=== PATIENT | male | born 2000 ===

== ENCOUNTER 2024-10-25 12:09 | Emergency (ER) | payer OTHER ==
[~2024-10-25] VITALS: Ht 170.2 cm; Wt 68.0 kg
[~2024-10-25 12:09] MED LIST: AMOX25SU PO
== END 2024-10-25 12:45 | disposition home or self-care (01) ==
LOC: ER 12:09
DX: M24.412 Recurrent dislocation, left shoulder (principal)
CPT/HCPCS: 23650; 73030; 99284-25

== ENCOUNTER 2024-11-06 06:08 | Day surgery (SDC) | payer MEDICARE ==
[~2024-11-06] VITALS: Ht 170.2 cm; Wt 62.2 kg
[2024-11-06] MEDS ORDERED: Lactated Ringer's 1,000 ML IV ONE ×3 (06:14→09:47)
[2024-11-06] MEDS ORDERED: CeFAZolin Sodium 2,000 MG VIAL ONE (06:14)
[2024-11-06] MEDS ORDERED: Tranexamic Acid 100 ML IV ONE (06:16)
[2024-11-06] MEDS ORDERED: FISH OIL 1,0001 EA10 (06:32)
[2024-11-06] MEDS ORDERED: Midazolam HCL 1 MG/ML 5MLVIAL ONE (07:02)
[2024-11-06] MEDS ORDERED: Bupivacaine 0.5% W/EPI 1:200000 SDV 30 ML Vial ONE (07:02)
[2024-11-06] MEDS ORDERED: propofoL 20 ML IV ONE ×2 (07:03→10:08)
[2024-11-06] MEDS ORDERED: FentaNYL Citrate 50 MCG/ML 2 ML Injection ONE (07:03)
[2024-11-06] MEDS ORDERED: EPINEPhrine HCl 1 MG/ML 1ML Amp ONE (07:07)
[2024-11-06] MEDS ORDERED: Rocuronium Bromide 10 MG/ML 5ML Injection IV ONE (07:34)
--- NOTE | 2024-11-06 07:34 | NUR ---
11/06/24 0734 Uma Wells BLOCK TIME OUT AT 0725. BLOCK START AT 07. BLOCK END AT 728. PT ON CONT PULSE OX MONITORING.
[2024-11-06] MEDS ORDERED: Dexamethasone Sod Phos 10 MG/ML 1ML VIAL ONE (07:43)
[2024-11-06] MEDS ORDERED: Ondansetron HCl 2 MG / ML 2ML Vial ONE ×2 (07:43→11:44)
[2024-11-06] MEDS ORDERED: HYDROmorphone HCl/Pf 1MG SYR ONE ×2 (09:10→10:07)
[2024-11-06] MEDS ORDERED: Ketorolac Tromethamine 30mg Vial ONE (09:11)
[2024-11-06] MEDS ORDERED: Labetalol HCL 5 MG/ML 4ML Injection (Single Dose) ONE (10:13)
[2024-11-06] MEDS ORDERED: CeFAZolin Sodium 1000 mg Vial ONE (10:29)
[2024-11-06] MEDS ORDERED: Sugammadex Sodium 200 MG/2ML SDV (100 MG/ML) ONE (10:31)
--- NOTE | 2024-11-06 12:11 | NUR ---
11/06/24 1211 Lidya Arellano 1207 REPORT FROM [facility] AND [facility]. PT RESTING IN CHAIR. C/O NAUSEA, HAS BEEN GIVEN ZOFRAN 4MG. 1210 PT ASLEEP IN CHAIR.
== END 2024-11-06 12:46 | disposition home or self-care (01) ==
LOC: ORSCSDS 06:08
PROVIDERS: Orthopaedic Surgery Sports Medicine
PROC: 0LM24ZZ Reattachment of Left Shoulder Tendon, Percutaneous Endoscopic Approach (ICD-10-PCS; principal; 2024-11-06 07:30)
PROC: 0PU Upper Bones, Supplement (ICD-10-PCS; principal; 2024-11-06 07:30)
DX: S43.432A Superior glenoid labrum lesion of left shoulder, initial encounter (principal); M24.412 Recurrent dislocation, left shoulder; S42.292A Other displaced fracture of upper end of left humerus, initial encounter for closed fracture
CPT/HCPCS: C1713; J0171; J0690; J1100; J1171; J1885; J2250; J2405; J2704; J3010; J7120